=== PATIENT | male | born 1970 | race Caucasian/White ===

== ENCOUNTER 2017-10-29 10:40 | Emergency (ER) | payer OTHER ==
[~2017-10-29] VITALS: Ht 172.7 cm; Wt 77.0 kg
[~2017-10-29 10:40] MED LIST: ATOR-54 PO; GLC/500 PO
[2017-10-29 11:01] VITALS: TEMP 36.8; Ht 172.7 cm; Wt 77.0 kg
[2017-10-29] MEDS ORDERED: ONDANSETRON INJ 2 MG/ML 2 ML VIAL IV STA (11:28)
[2017-10-29] MEDS ORDERED: GI COCKTAIL PO STA (11:28)
[2017-10-29] MEDS ORDERED: ACETAMINOPHEN 500 MG TAB PO STA (11:28)
[2017-10-29] MEDS ORDERED: FAMOTIDINE 20 MG TAB PO ONE (11:30)
[2017-10-29] MEDS ORDERED: ALUMINUM/MAGNESIUM SUSP 30 ML UDC ONE (11:42)
[2017-10-29] MEDS ORDERED: LIDOCAINE HCL 2% VISC SOLN 20 ML UDC ONE (11:42)
[2017-10-29 12:03] LABS: BASO % 0.4 %; BASO ABS # 0.06 K/uL (0-0.2); EOS % 2.2 %; EOS ABS # 0.31 K/uL (0-0.5); HEMATOCRIT 45.7 % (42-52); HEMOGLOBIN 16.1 g/dL (14.0-18.0); IG# 0.05 K/uL (0.00-0.02); LYMPH % 27.8 %; LYMPH ABS # 3.84 K/uL (1.2-3.4); MEAN CELL VOLUME 89.4 fL (80-100); MEAN CORPUSCULAR HEMOGLOBIN 31.5 pg (25-34); MEAN CORPUSCULAR HGB CONC 35.2 g/dl (32-36); MEAN PLATELET VOLUME 9.3 fL (7.4-10.4); MONO % 7.7 %; MONO ABS # 1.06 K/uL (0.11-0.59); NEUT % 61.5 %; PLATELET COUNT 263 K/uL (130-400); RED CELL DISTRIBUTION WIDTH CV 13.1 % (11.5-14.5); RED CELL DISTRIBUTION WIDTH SD 43.5 fL (36.4-46.3); WHITE BLOOD COUNT 13.82 K/uL (4.8-10.8)
--- NOTE | 2017-10-29 12:08 | EMERGENCY ROOM VISIT NOTE ---
History Report prepared by Salomonibandrey: Denise Gan Under the Supervision of: Dr. Guy Gutierrez M.D. First contact with patient: 11:17 Chief Complaint: VOMITING Stated Complaint: STOMACH CRAMPS, VOMITING, BAD HEARTBURN History of Present Illness The patient is a 47 year old white male with a past medical history of DM, HLD, and depression who presents to the ED with intermittent abdominal pain for five days ME[employer]. Positive heart burn, abdominal pain, coughs, fevers, chills, nausea, vomiting, diarrhea, constipation. Negative trauma, recent travels, or sick contacts. He notes that he woke up five days ago with heart burn and he began vomiting. He notes that he woke up again with abdominal pain. He notes that he has never had heart burn in the past. 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 He denies any underlying medical problems. He has taken pain medication, though no relief. He notes he had an episode of diarrhea this morning, though he is now constipated. He denies any history of hernias or past surgeries. He uses tobacco. He denies any alcohol use. He has untreated DM and HLD. Source of History: patient Onset: five days MEAT CLERK Position: abdomen Symptom Intensity: 610 Timing: intermittent Associated Symptoms: + fevers, + chills, + cough, + nausea, + vomiting, + abdominal pain, + diarrhea Note: He notes heartburn and constipation. He denies trauma, recent travels, or sick contacts. Review of Systems See HPI for pertinent positives and negatives. A total of ten systems were reviewed and were otherwise negative. Past Medical & Surgical Medical Problems: (1) Depression (2) DM2 (diabetes mellitus, type 2) (3) HLD (hyperlipidemia) (4) HTN (hypertension) (5) Tobacco abuse Surgical Problems: (1) No significant past surgical history Social History Problems: (1) Smoker Family History Cancer Diabetes mellitus FATHER MOTHER Heart disease Hypertension Social History Smoking Status: Current Every Day Smoker Alcohol Use: none Drug Use: marijuana Marital Status: Housing Status: lives with family Occupation Status: employed Current/Historical Medications Scheduled Atorvastatin (Lipitor), 1 TAB PO DAILY Loratadine (Claritin), 10 MG PO DAILY Metformin Hcl (Glucophage), 500 MG PO BID Allergies Coded Allergies: No Known Allergies (Unverified , 10/29/17) Physical Exam Vital Signs Date Time Temp Pulse Resp B/P (MAP) Pulse Ox O2 Delivery O2 Flow Rate FiO2 10/29/17 13:42 68 18 118/68 96 Room Air 10/29/17 12:36 71 18 105/65 96 Room Air 10/29/17 11:46 73 18 133/69 97 Room Air 10/29/17 11:46 71 10/29/17 11:01 36.8 77 20 120/77 96 Room Air Physical Exam GENERAL: Awake, alert, well-appearing, NAD. Smells of smoke. HENT: Normocephalic, atraumatic. EYES: Normal conjunctiva. Sclera non-icteric. NECK: Supple. No nuchal rigidity. FROM. RESPIRATORY: CTAB, no rhonchi, wheezing, crackles CARDIAC: RRR, no MRG ABDOMEN: Soft, ND, BS+. Epigastric TTP, ventral hernia present, easily reducible MSK: No chest wall TTP, no LE edema NEURO: GCS 15, CN 2-12 intact, moves all 4s on command SKIN: No rash or jaundice noted. Medical Decision & Procedures ER Provider Diagnostic Interpretation: Radiology results as stated below per my review and radiologist interpretation: ABDOMEN 2VIEW W/PA CHEST RTN CLINICAL HISTORY: Abdominal pain COMPARISON STUDY: Chest x-ray performed January 2016 FINDINGS: The erect chest reveals no evidence of free air. There is no evidence of focal pulmonary consolidation.] Erect and supine views of the abdomen reveal no abnormally dilated loops of large or small bowel. There are no transition zone to indicate bowel obstruction. IMPRESSION: No evidence of bowel obstruction. No evidence of free air. Electronically signed by: Derrek Newberry M.D. 10/29/2017 12:11 PM Dictated Date/Time: 10/29/2017 12:11 PM Laboratory Results 10/29/17 11:45 Red Blood Count 5.11, Mean Corpuscular Volume 89.4, Mean Corpuscular Hemoglobin 31.5, Mean Corpuscular Hemoglobin Concent 35.2, Mean Platelet Volume 9.3, Neutrophils (%) (Auto) 61.5, Lymphocytes (%) (Auto) 27.8, Monocytes (%) (Auto) 7.7, Eosinophils (%) (Auto) 2.2, Basophils (%) (Auto) 0.4, Neutrophils # (Auto) 8.50, Lymphocytes # (Auto) 3.84, Monocytes # (Auto) 1.06, Eosinophils # (Auto) 0.31, Basophils # (Auto) 0.06 10/29/17 11:45 Test 10/29/17 11:45 10/29/17 12:00 White Blood Count 13.82 K/uL (4.8-10.8) Red Blood Count 5.11 M/uL (4.7-6.1) Hemoglobin 16.1 g/dL (14.0-18.0) Hematocrit 45.7 % (42-52) Mean Corpuscular Volume 89.4 fL (80-100) Mean Corpuscular Hemoglobin 31.5 pg (25-34) Mean Corpuscular Hemoglobin Concent 35.2 g/dl (32-36) Platelet Count 263 K/uL (130-400) Mean Platelet Volume 9.3 fL (7.4-10.4) Neutrophils (%) (Auto) 61.5 % Lymphocytes (%) (Auto) 27.8 % Monocytes (%) (Auto) 7.7 % Eosinophils (%) (Auto) 2.2 % Basophils (%) (Auto) 0.4 % Neutrophils # (Auto) 8.50 K/uL (1.4-6.5) Lymphocytes # (Auto) 3.84 K/uL (1.2-3.4) Monocytes # (Auto) 1.06 K/uL (0.11-0.59) Eosinophils # (Auto) 0.31 K/uL (0-0.5) Basophils # (Auto) 0.06 K/uL (0-0.2) RDW Standard Deviation 43.5 fL (36.4-46.3) RDW Coefficient of Variation 13.1 % (11.5-14.5) Immature Granulocyte % (Auto) 0.4 % Immature Granulocyte # (Auto) 0.05 K/uL (0.00-0.02) Anion Gap 4.0 mmol/L (3-11) Est Creatinine Clear Calc Drug Dose 126.2 ml/min Estimated GFR () 130.3 Estimated GFR (Non- 112.4 BUN/Creatinine Ratio 14.3 (10-20) Calcium Level 9.0 mg/dl (8.5-10.1) Total Bilirubin 0.3 mg/dl (0.2-1) Direct Bilirubin < 0.1 mg/dl (0-0.2) Aspartate Amino Transf (AST/SGOT) 21 U/L (15-37) Alanine Aminotransferase (ALT/SGPT) 37 U/L (12-78) Alkaline Phosphatase 103 U/L (45-117) Troponin I < 0.015 ng/ml (0-0.045) Total Protein 7.6 gm/dl (6.4-8.2) Albumin 3.7 gm/dl (3.4-5.0) Lipase 104 U/L (73-393) Urine Color YELLOW Urine Appearance CLEAR (CLEAR) Urine pH 5.5 (4.5-7.5) Urine Specific [place] 1.017 (1.000-1.030) Urine Protein NEG (NEG) Urine Glucose (UA) 2+ (NEG) Urine Ketones NEG (NEG) Urine Occult Blood NEG (NEG) Urine Nitrite NEG (NEG) Urine Bilirubin NEG (NEG) Urine Urobilinogen NEG (NEG) Urine Leukocyte Esterase NEG (NEG) Laboratory results reviewed by me Medications Administered Medications (Trade) Dose Ordered Sig/Selvin Route Start Time Stop Time Status Last Admin Dose Admin Ondansetron HCl (Zofran Inj) 4 mg NOW STAT IV 10/29/17 11:28 10/29/17 11:30 DC 10/29/17 11:46 4 MG Acetaminophen (Tylenol Tab) 1,000 mg NOW STAT PO 10/29/17 11:28 10/29/17 11:30 DC 10/29/17 11:47 1,000 MG Famotidine (Pepcid Tab) 20 mg NOW ONCE PO 10/29/17 11:30 10/29/17 11:31 DC 10/29/17 11:47 20 MG Lidocaine HCl (Viscous Lidocaine 2% Soln) 20 ml STK-MED ONCE .ROUTE 10/29/17 11:42 10/29/17 11:43 DC 10/29/17 11:48 20 ML Al Hydroxide/Mg Hydroxide (Maalox Susp) 30 ml STK-MED ONCE .ROUTE 10/29/17 11:42 10/29/17 11:43 DC 10/29/17 11:47 30 ML ECG Indication: abdominal pain Rate (beats per minute): 69 Rhythm: normal sinus Findings: nonspecific-ST abn, other (Normal intervals. RAD. Single isolated T wave in L3 ) ED Course 1119: The patient was evaluated in room C1. A complete history and physical exam was performed. 1345: I reassessed the patient at this time. He is feeling better and resting comfortably. I discussed the results and treatment plan with the patient. I answered all pertaining questions that he had. He expressed understanding and verbalized agreement. The patient will be discharged home. 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 Prior records/ancillary studies reviewed. Triage Nursing notes reviewed. The patient's history was concerning for abdominal pain. Differential diagnosis: Etiologies such as appendicitis, diverticulitis, PUD, biliary pathology, UTI, pancreatitis, obstruction, mesenteric ischemia, aortic pathology, infections, inflammatory bowel disease, renal colic, as well as others were entertained. Patient was seen and evaluated the bedside. Patient did complain of some epigastric discomfort that of been ongoing for about 5 days. Patient denied any nausea or vomiting. Patient is had a recent bowel movement. 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 Patient denies any chest pain or shortness of breath. Patient did have an EKG which appears nonischemic. Patient had a troponin was also negative. Patient did have other blood work completed and was given symptomatically control. Upon reassessment the patient was feeling improved. Patient will blood cell count of 13 however the patient did not have an acute surgical abdomen sided do not believe he that he required any more advanced imaging this time. Patient did have a chest x- ray KUB which didn't show anything acute. Patient LFTs and lipase within normal limits. Patient was told he likely had an element of gastritis or PUD. Patient was told to avoid smoking, alcohol, citrus, peppermint, chocolate, or spicy foods. Patient was told he may try an antihistamine H2 sveta or he may try something like a PPI. Patient was amenable to this plan of care. Patient was deemed suitable for outpatient follow-up and treatment. Patient was given strict follow-up, discharge, and return precautions. All questions were answered. Patient was deemed suitable for outpatient follow-up at this time. Patient agreed with the plan of care and was safely discharged home. Medication Reconcilliation Current Medication List: was personally reviewed by me Blood Pressure Screening Patient's blood pressure: Normal blood pressure Impression Primary Impression: Acute gastritis Additional Impression: Encounter for smoking cessation counseling Scribe Attestation The scribe's documentation has been prepared under my direction and personally reviewed by me in its entirety. I confirm that the note above accurately reflects all work, treatment, procedures, and medical decision making performed by me. Departure Information Dispostion Home / Self-Care Referrals No Doctor, Assigned (PCP) Forms HOME CARE DOCUMENTATION FORM, IMPORTANT VISIT INFORMATION Patient Instructions ED Epigastric Pain UKO, ED PUD Vs Gastritis, My [facility] Additional Instructions Please return to the emergency department if you have worsening or recurrent symptoms not amenable to at-home treatment. Please call for a follow-up appointment with her primary care physician. Please take your medications as prescribed. If you have other concerns and/or complaints please feel free to also call your primary care physician's office or return the ED for further evaluation, management, and treatment. You were found to have an elevated blood pressure today (>120 sytolic or >90 diastolic). Per medicare guidelines, you need to follow up with this blood pressure screening with your Primary Care Physician (PCP). For a new PCP call [phone]. You received narcotic or benzodiazepene medication while in the emergency room today. This is an addictive medication that may cause drowziness as well as constipation. Do not drive, operate heavy machinery, or drink alcohol under the influence of this medication. Please also consider avoiding smoking. Please follow-up with her PCP. Also consider obtaining from alcohol, spicy, citrus. Please avoid NSAIDs. Consider taking either a famotidine or Pepcid or if her symptoms don't improve you may take a Nexium. You may take tylenol 650 mg every 6 hours as needed for pain. Take your medications as prescribed. If taking an antibiotic consider taking a probiotic and/or eating yogurt, but at the least, please take with food as it can cause upset stomach. If culture results are not available at discharge, if they are positive for concern of infection, you will be informed of the results as soon as they are available. If you were seen between 11pm and 7AM all radiology reads will be re-read by our in house staff. If any major discrepancies are discovered, you will be notified. You have been examined and treated today on an emergency basis only. This is not a substitute for, or an effort to provide, complete comprehensive medical care. It is impossible to recognize and treat all injuries or illnesses in a single emergency department visit. It is therefore important that you follow up closely with [facility], your PCP, and/or your specialist(s). Call as soon as possible for an appointment. Thank you for your time and consideration. I look forward to speaking with you again soon. Please don't hesitate to call us if you have any questions. Problem Qualifiers Primary Impression: Acute gastritis Gastritis type: unspecified gastritis Gastritis bleeding: presence of bleeding unspecified Qualified Codes: K29.00 - Acute gastritis without bleeding
--- NOTE | 2017-10-29 12:13 | DIAGNOSTIC IMAGING REPORT ---
ABDOMEN 2VIEW W/PA CHEST RTN CLINICAL HISTORY: Abdominal pain COMPARISON STUDY: Chest x-ray performed January 2016 FINDINGS: The erect chest reveals no evidence of free air. There is no evidence of focal pulmonary consolidation.] Erect and supine views of the abdomen reveal no abnormally dilated loops of large or small bowel. There are no transition zone to indicate bowel obstruction. IMPRESSION: No evidence of bowel obstruction. No evidence of free air. Electronically signed by: Derrek Newberry M.D. 10/29/2017 12:11 PM Dictated Date/Time: 10/29/2017 12:11 PM
[2017-10-29 12:20] LABS: ALBUMIN 3.7 gm/dl (3.4-5.0); ALT/SGPT 37 U/L (12-78); BLOOD UREA NITROGEN 10 mg/dl (7-18); CARBON DIOXIDE 28 mmol/L (21-32); GLUCOSE 167 mg/dl (70-99); LIPASE 104 U/L (73-393); POTASSIUM 4.6 mmol/L (3.5-5.1); SODIUM 136 mmol/L (136-145)
[2017-10-29 12:25] LABS: ALKALINE PHOSPHATASE 103 U/L (45-117); AST/SGOT 21 U/L (15-37); TOTAL PROTEIN 7.6 gm/dl (6.4-8.2)
[2017-10-29 13:42] VITALS: BP 118/68; PULSE 68; O2SAT 96
[2017-11-01] MEDS ORDERED: CLR10 PO (00:01)
== END 2017-10-29 14:08 | disposition home or self-care (01) ==
LOC: C.EDB 10:41 → C.EDC 14:08
DX: K29.00 Acute gastritis without bleeding (principal); Z71.6 Tobacco abuse counseling; E11.9 Type 2 diabetes mellitus without complications; E78.5 Hyperlipidemia, unspecified; I10 Essential (primary) hypertension; F32.9 Major depressive disorder, single episode, unspecified; F17.200 Nicotine dependence, unspecified, uncomplicated; Z79.899 Other long term (current) drug therapy; Z80.9 Family history of malignant neoplasm, unspecified; Z83.3 Family history of diabetes mellitus; Z82.49 Family history of ischemic heart disease and other diseases of the circulatory system

== ENCOUNTER 2017-11-01 13:36 | Emergency (ER) | payer OTHER ==
[~2017-11-01] VITALS: Ht 172.7 cm; Wt 76.5 kg
[~2017-11-01 13:36] MED LIST changes: +CLR10 PO
[2017-11-01 13:49] VITALS: TEMP 36.7; Ht 172.7 cm; Wt 76.5 kg
[2017-11-01] MEDS ORDERED: MoRPHine SULFATE 4 MG/ML 1 ML CARP\\VIAL IV STA (15:33)
[2017-11-01] MEDS ORDERED: ONDANSETRON INJ 2 MG/ML 2 ML VIAL IV STA (15:33)
[2017-11-01] MEDS ORDERED: SODIUM CHLORIDE 0.9% 1000ML 1,000 ML IV STA (15:33)
[2017-11-01] MEDS ORDERED: OPTIRAY 320 IV PRN (15:45)
[2017-11-01] MEDS ORDERED: GI COCKTAIL PO ONE (15:45)
[2017-11-01] MEDS ORDERED: ALUMINUM/MAGNESIUM SUSP 30 ML UDC ONE (16:00)
[2017-11-01] MEDS ORDERED: LIDOCAINE HCL 2% VISC SOLN 20 ML UDC ONE (16:00)
[2017-11-01] MEDS ORDERED: MULT-513 PO (16:03)
[2017-11-01] MEDS ORDERED: ASPI81TA28 PO (16:03)
[2017-11-01] MEDS ORDERED: GUAI1TAB55 PO (16:03)
[2017-11-01 16:18] LABS: BASO % 0.6 %; BASO ABS # 0.09 K/uL (0-0.2); EOS % 1.7 %; EOS ABS # 0.26 K/uL (0-0.5); HEMOGLOBIN 16.6 g/dL (14.0-18.0); IG# 0.06 K/uL (0.00-0.02); LYMPH % 29.7 %; LYMPH ABS # 4.48 K/uL (1.2-3.4); MEAN CELL VOLUME 88.7 fL (80-100); MEAN CORPUSCULAR HEMOGLOBIN 31.3 pg (25-34); MEAN CORPUSCULAR HGB CONC 35.3 g/dl (32-36); MONO % 8.4 %; MONO ABS # 1.26 K/uL (0.11-0.59); NEUT % 59.2 %; NEUT ABS # 8.92 K/uL (1.4-6.5); PLATELET COUNT 306 K/uL (130-400); RED CELL DISTRIBUTION WIDTH SD 42.2 fL (36.4-46.3); WHITE BLOOD COUNT 15.07 K/uL (4.8-10.8)
[2017-11-01 16:30] LABS: PTT PATIENT 32.4 SECONDS (21.0-31.0)
[2017-11-01 16:35] LABS: ALBUMIN 3.6 gm/dl (3.4-5.0); CALCIUM 8.8 mg/dl (8.5-10.1); CREATININE 0.7 mg/dl (0.60-1.40); POTASSIUM 4.1 mmol/L (3.5-5.1)
[2017-11-01 16:54] LABS: TOTAL PROTEIN 7.6 gm/dl (6.4-8.2)
--- NOTE | 2017-11-01 18:20 | DIAGNOSTIC IMAGING REPORT ---
CT OF THE ABDOMEN AND PELVIS WITH CONTRAST CLINICAL HISTORY: Abdominal pain. COMPARISON STUDY: Chest radiograph with abdominal series performed October 29, 2007 pain. TECHNIQUE: Following IV administration of 116 mL of Optiray-320, axial images of the abdomen and pelvis were obtained from the lung bases to the proximal femurs. Images were reviewed in the axial, sagittal, and coronal planes. IV contrast was administered without complication. A dose lowering technique was utilized adhering to the principles of ALARA. Oral contrast was administered. CT DOSE: 376.14 mGy.cm FINDINGS: The liver, spleen, adrenal glands, kidneys and pancreas are unremarkable. There is no biliary or pancreatic ductal dilatation. There is mild pancreatic glandular atrophy. There is no hydronephrosis. Caliber and wall thickness of small and large bowel are normal. Cecum is located within the right upper quadrant. The appendix is normal. There is no free fluid or lymphadenopathy. No suspicious osseous lesion is present. Major vasculature of the abdomen and pelvis is patent. There is mild to moderate atherosclerotic plaque aortoiliac system. No pneumatosis, free air or portal venous gas is present. IMPRESSION: 1. No acute process within the abdomen or pelvis. 2. Normal appendix. No bowel obstruction. 3. Mild to moderate atherosclerotic plaque of the aortoiliac system. Electronically signed by: John Nunez M.D. 11/01/2017 6:18 PM Dictated Date/Time: 11/01/2017 6:11 PM
[2017-11-01] MEDS ORDERED: PRLSR20 PO (19:25)
[2017-11-01 19:30] VITALS: BP 130/62; PULSE 78; O2SAT 96
--- NOTE | 2017-11-01 23:08 | EMERGENCY ROOM VISIT NOTE ---
ED Visit Note First contact with patient: 15:23 Chief Complaint: Abdominal pain. History of Present Illness: Ms. Gimenez is a 47 year-old white male with ambulates into the ED complaining of epigastric abdominal pain. Historically patient reports history of diabetes, hypertension and dyslipidemia. He denies any gastrointestinal diseases or abdominal surgeries. He was seen in this ED 3 days ago and diagnosed with acute gastritis. He was encouraged to start Pepcid and use a bland diet. He reports he has started the Pepcid but is continued to have epigastric pain. He has started his bland diet which has not helped his pain but has helped the nausea he had while in the ED. He was unable to follow-up with his family physician because he recently lost his health insurance. Also it should be noted during his last visit to the ED of cardiac workup was performed and his EKG was normal and his cardiac laboratories were normal. Patient reports ongoing pain for the last [address] his discomfort in the epigastric region. He describes it as a pressure sensation and describes it as if something is pushing out of his abdomen. He rates his discomfort 7/ 10. His pain is radiating into both upper quadrants with more prominence in the left. As previously noted he has been taking his Pepcid without relief of his discomfort. He reports walking and palpation of his abdomen increases his discomfort. He reports mild relief of his discomfort when he is laying flat. He denies resolution of all previous associated symptoms including nausea. Patient denies fevers, chills, sweats, skin eruptions, skin color changes, upper respiratory tract symptoms, shortness of breath, chest pain, nausea, vomiting, diarrhea, constipation, rectal bleeding, black/tarry stools, urinary symptoms, hematuria, back/flank pain. Review of Systems: As noted above in history of present illness. All body systems were reviewed and found to be negative as noted above. Past Medical History: As previously noted, depression. Current Medications: Medications Dose Route/Sig Max Daily Dose Days Date Category Mucinex Ext Rel (Guaifenesin) 600 Mg Tab 600 Mg PO QAM 11/01/17 Reported Aspirin Ec (Aspirin) 81 Mg Tab 81 Mg PO DAILY 11/01/17 Reported Mvi With Minerals (Multivitamins/Minerals) Tab 1 Tab PO DAILY 11/01/17 Reported Lipitor (Atorvastatin) 20 Mg Tab 1 Tab PO DAILY 30 02/07/16 Rx Glucophage (Metformin Hcl) 500 Mg Tab 500 Mg PO BID 02/07/16 Rx Claritin (Loratadine) 10 Mg Tab 10 Mg PO DAILY 07/18/12 Reported Allergies to Medications: Patient denies. Social History: Patient is currently employed; he feels safe in his home environment; he admits to tobacco use and denies alcohol use. Physical Examination: Vital Signs: Date Time Temp Pulse Resp B/P (MAP) Pulse Ox O2 Delivery O2 Flow Rate FiO2 11/01/17 19:30 78 20 130/62 96 11/01/17 18:29 79 132/68 96 Room Air 11/01/17 16:12 84 11/01/17 15:52 81 125/69 95 Room Air 11/01/17 13:49 36.7 81 18 122/70 97 Room Air GENERAL: 47-year-old male in mild to moderate distress due to pain, nontoxic- appearing, afebrile and hemodynamically stable. NEUROLOGICAL: Awake, alert and oriented to person, place and time. Answering questions appropriately and following commands. Normal gait. Good hand eye coordination. SKIN: Warm, dry and pink. No soft tissue eruptions or trauma noted. HEENT: Atraumatic and normocephalic. PERRLA. Sclera white and conjunctiva pink. Oral cavity moist and pink. Pharynx is nonerythematous or edematous. Speech normal. No lymphadenopathy. Trachea midline. No jugular venous distention. BACK: No tenderness over the bony spine. No CVA tenderness. THORAX: Lungs sounds are clear to auscultation and equal bilaterally with symmetrical chest wall. No wheezing, rales or rhonchi. No crepitus, tenderness , subcutaneous air or deformities noted. HEART: Regular rate and rhythm. No gallops, rubs or murmurs are appreciated. ABDOMEN: Firm and tender in the epigastrium and the left upper quadrant with mild guarding. Decreased bowel sounds in all quadrants. No rigidity or organomegaly. Potential hernias palpable and is soft and nontender. EXTREMITIES: Moves all extremities well on command and with purpose. All distal neurovascular statuses are intact and equal bilaterally. ED Course: Patient is assessed as noted above. Patient's medication list was reviewed. Laboratory Testing: Test 11/01/17 16:00 11/01/17 17:20 Range/Units White Blood Count 15.07 4.8-10.8 K/uL Red Blood Count 5.30 4.7-6.1 M/uL Hemoglobin 16.6 14.0-18.0 g/dL Hematocrit 47.0 42-52 % Mean Corpuscular Volume 88.7 80-100 fL Mean Corpuscular Hemoglobin 31.3 25-34 pg Mean Corpuscular Hemoglobin Concent 35.3 32-36 g/dl Platelet Count 306 130-400 K/uL Mean Platelet Volume 9.0 7.4-10.4 fL Neutrophils (%) (Auto) 59.2 % Lymphocytes (%) (Auto) 29.7 % Monocytes (%) (Auto) 8.4 % Eosinophils (%) (Auto) 1.7 % Basophils (%) (Auto) 0.6 % Neutrophils # (Auto) 8.92 1.4-6.5 K/uL Lymphocytes # (Auto) 4.48 1.2-3.4 K/uL Monocytes # (Auto) 1.26 0.11-0.59 K/uL Eosinophils # (Auto) 0.26 0-0.5 K/uL Basophils # (Auto) 0.09 0-0.2 K/uL RDW Standard Deviation 42.2 36.4-46.3 fL RDW Coefficient of Variation 13.0 11.5-14.5 % Immature Granulocyte % (Auto) 0.4 % Immature Granulocyte # (Auto) 0.06 0.00-0.02 K/uL Prothrombin Time 10.8 9.0-12.0 SECONDS Prothromb Time International Ratio 1.0 0.9-1.1 Activated Partial Thromboplast Time 32.4 21.0-31.0 SECONDS Partial Thromboplastin Ratio 1.2 Sodium Level 133 136-145 mmol/L Potassium Level 4.1 3.5-5.1 mmol/L Chloride Level 99 98-107 mmol/L Carbon Dioxide Level 30 21-32 mmol/L Anion Gap 4.0 3-11 mmol/L Blood Urea Nitrogen 14 7-18 mg/dl Creatinine 0.70 0.60-1.40 mg/dl Est Creatinine Clear Calc Drug Dose 126.2 ml/min Estimated GFR () 130.3 Estimated GFR (Non- 112.4 BUN/Creatinine Ratio 20.6 10-20 Random Glucose 172 70-99 mg/dl Calcium Level 8.8 8.5-10.1 mg/dl Total Bilirubin 0.4 0.2-1 mg/dl Direct Bilirubin 0.1 0-0.2 mg/dl Aspartate Amino Transf (AST/SGOT) 28 15-37 U/L Alanine Aminotransferase (ALT/SGPT) 73 12-78 U/L Alkaline Phosphatase 101 45-117 U/L Total Protein 7.6 6.4-8.2 gm/dl Albumin 3.6 3.4-5.0 gm/dl Lipase 103 73-393 U/L Urine Color YELLOW Urine Appearance CLEAR CLEAR Urine pH 6.5 4.5-7.5 Urine Specific [place] 1.011 1.000-1.030 Urine Protein NEG NEG Urine Glucose (UA) 1+ NEG Urine Ketones NEG NEG Urine Occult Blood NEG NEG Urine Nitrite NEG NEG Urine Bilirubin NEG NEG Urine Urobilinogen NEG NEG Urine Leukocyte Esterase NEG NEG Contrast Abdominal/Pelvic CT: Was reviewed by myself and read by the radiologist and shows no acute process within the abdomen or pelvis, normal- appearing appendix, no bowel obstruction, mild to moderate atherosclerotic plaque in the aortoiliac system. Patient was hydrated with normal saline and received 4 mg of Zofran IV for nausea and a GI cocktail; it should be noted that initially morphine was ordered if the patient's pain was not responsive to the GI cocktail. Patient remained pain-free after receiving a GI cocktail to discharge so morphine was not administered. Patient was reassessed multiple times during his stay in the emergency department. Patient's case was reviewed with Dr. Norton; we agreed on diagnostic approach, treatment, disposition and plan. Patient was educated about today's findings and instructed on his treatment plan ; he verbalized understanding and agreement with this plan. Clinical Impression: Epigastric abdominal pain. Left upper quadrant abdominal pain. Decision-Making: Initially my differential diagnosis I considered pancreatitis, hepatitis, gastritis, esophageal reflux, hiatal hernia, cholecystitis and other causes. Disposition: Patient discharged home in stable condition; prior to departure he was reassessed and subjectively reported he was still pain and symptom-free. Plan: Patient was encouraged use 650 mg of acetaminophen every 6 hours for pain. Patient was prescribed 20 mg of omeprazole 2 times a day for 15 days and follow- up with family physician. Patient was encouraged to avoid stomach irritants. Patient was encouraged to stay well-hydrated with increased clear fluids. Patient was encouraged to follow-up with family physician for recheck and possible referral to gastroenterology for possible EGD. Patient was encouraged return ED for worsening pain, fevers, bloody vomitus, bloody stools, black/tarry stools or any new/concerning symptoms.
== END 2017-11-01 19:30 | disposition home or self-care (01) ==
LOC: C.EDB 13:36 → C.EDC 19:30
DX: R10.13 Epigastric pain (principal); R10.12 Left upper quadrant pain; E11.9 Type 2 diabetes mellitus without complications; I10 Essential (primary) hypertension; E78.5 Hyperlipidemia, unspecified; F32.9 Major depressive disorder, single episode, unspecified; Z79.82 Long term (current) use of aspirin; Z79.84 Long term (current) use of oral hypoglycemic drugs